=== PATIENT | male | born 1960 | race Caucasian/White ===

== ENCOUNTER 2019-01-18 08:34 | Inpatient (IN) | payer BC, OTHER, SELFPAY ==
--- NOTE | 2019-01-18 09:04 | RAD ---
Portable frontal chest radiograph: 01/18/2019 COMPARISON: 08/03/2010 HISTORY: Heat exhaustion, chest pain FINDINGS: Lungs are clear. Heart and mediastinal contours appear within normal limits. IMPRESSION: No acute findings.
[2019-01-18] MEDS ORDERED: Nitroglycerin 2% Ointment 1 INCH/1 GM Packet ONE (09:38)
[2019-01-18 09:50] LABS: #Lymphocytes 0.7 thou/uL (1.20-3.40); #Monocytes 0.6 thou/uL (0.11-0.59); #Neutrophils 6.1 thou/uL (1.40-6.50); %Basophils 0.6 % (0.0-1.0); %Eosinophils 0.3 % (0.0-10.0); %Monocytes 7.5 % (0.0-10.0); %Neutrophils 82.6 % (42.0-75.0); Hemoglobin 17.6 g/dL (14.0-18.0); Mean Corpuscular HGB CONC 33.4 g/dL (32.0-36.0); Mean Corpuscular Hemoglobin 33.4 pg (27.0-31.0); Mean Platelet Volume 8.1 fL (7.4-10.4); Platelet Count 238 thou/uL (130-400); RBC Distribution Width 14.2 % (11.5-14.5); Red Blood Cell (RBC) Count 5.26 mill/uL (4.70-6.10); White Blood Cell (WBC) Count 7.3 thou/uL (4.8-10.8)
[2019-01-18 10:11] LABS: ALT (SGPT) 37 U/L (8-55); AST (SGOT) 59 U/L (5-34); Albumin 4.4 g/dL (3.5-5.0); Alkaline Phosphatase 85 U/L (40-150); Anion Gap 31 mmol/L (10-20); BUN (Urea Nitrogen) 56 mg/dL (8.4-25.7); Bilirubin, Total 0.8 mg/dL (0.2-1.2); CK (CPK) 2639 U/L (30-200); Calc. Creatinine Clearance 0 mL/min (70-130); Calcium 8.7 mg/dL (7.8-10.44); Carbon Dioxide 17 mmol/L (22-29); Chloride 89 mmol/L (98-107); Estimated GFR-MDRD 6; Globulin 3.1 g/dL (2.4-3.5); Glucose 156 mg/dL (70-105); Lipase 30 U/L (8-78); Potassium 4.4 mmol/L (3.5-5.1); Protein, Total 7.5 g/dL (6.0-8.3); Sodium 133 mmol/L (136-145)
[2019-01-18 10:41] LABS: CKMB 24.4 ng/mL (0-6.6)
[2019-01-18] MEDS ORDERED: Metoprolol Tartrate 5 MG/5 ML VIAL ONE (10:42)
[2019-01-18] MEDS ORDERED: Nitroglycerin 50 MG/250 ML BOT 0 ML ONE (10:42)
--- NOTE | 2019-01-18 12:30 | ULT ---
ULTRASOUND RENAL BILATERAL STANDARD: Date: 01/18/19 HISTORY: Acute renal failure. COMPARISON: None. FINDINGS: Real-time Guerrero scale and color evaluation of the kidneys and urinary bladder performed. Diffuse incre ased hepatic echotexture. Right kidney measures 10.3 x 4.8 x 5.5 cm. Left kidney measures 11.2 x 5.1 x 6.3 cm. Urinary bladder is unremarkable and is mildly distended. IMPRESSION: 1. No evidence for acute obstructive uropathy. 2. Diffuse increased hepatic echotexture suggesting steatosis. POS: CET
[2019-01-18 12:52] LABS: Bilirubin Negative (Negative); Blood, Urine 3+ (Negative); Clarity Turbid (Clear); Glucose, Urine (Dipstick) 50 mg/dL (Negative); Leukocyte Negative Leu/uL (Negative); Nitrite Negative (Negative); Protein, Urine (Dipstick) 300 mg/dL (Neg-Trace); Urobilinogen Normal mg/dL (Less than 2)
[2019-01-18 13:01] LABS: Mucous/LPF 3+ LPF (<2+)
[2019-01-18 13:02] LABS: Bacteria/HPF None Seen HPF (None Seen); Transitional Epithelial 0-3 HPF (None Seen)
--- NOTE | 2019-01-18 13:15 | HP ---
The patient goes to the [place] [facility], although he admits he has not been there in about 3 years or more. CHIEF COMPLAINT: I was working outside and feeling queasy and dizzy. HISTORY OF PRESENT ILLNESS: Mr. Stallings is a pleasant 58-year-old gentleman, who has a history of hypertension, however, he is not on any medications for it. He says that yesterday he was working outside in the heat and noticed that he started feeling a bit queasy and dizzy. He also said he was starting to lose his balance. He says that the dizziness is worse when he tries to get up and move around and he says he basically fell and believes he maybe even passed out for a few minutes. He says he drank a lot a water and rested and noticed that he still was having some of these symptoms. He noticed that he also was feeling a bit short of breath and he had to stop every 10 minutes in order to try to catch his breath and rest. He says that the next morning he got up and started feeling the same way. At this time, he says his entire body was cramping and he said he felt dehydrated. He says that if he tried to stretch his legs, his calves would get sore. His arms and even his fingertips were cramping. Then, he says when he started getting short of breath, he says he could hardly breathe and his breathing felt hard and heavy. He also says that he was still trying to drink water and felt dehydrated, but every time he tried to drink, at this time, it was throwing up. He also admits that he has not urinated in the past 3 days. Neither as he had any bowel movement either, and due to these symptoms, he came to the ER for evaluation. In the ER, lab work was done and it was found that he has a creatinine of 8.6 with no previous baseline. He is also found to be acidotic and his troponin was slightly elevated and for this reason, he is being admitted. The patient denies any abdominal pain. He denies any fevers or chills. He denies any headaches. When asked if he has any chest pain, he says no. He says it is mainly just cramping and more muscle cramping, but he does note some shortness of breath off and on. REVIEW OF SYSTEMS: With regard to the review of systems; CONSTITUTIONAL: There has been no fevers. No chills. No night sweats. No weight loss. HEENT: He denies any headaches, but he does admit to some dizziness. No visual changes. No sore throat or rhinorrhea. NECK: No neck pain. No adenopathy. PULMONARY: No hemoptysis. No cough. No wheezing. CARDIOVASCULAR: He denies any chest pain. He has had some dyspnea both at rest and on exertion. No PND. No orthopnea. No lower extremity edema. GASTROINTESTINAL: As the history of present illness. He also had no hemoptysis or melena. GENITOURINARY: He has had no urine production in the last 3 days. No hematuria prior to that. MUSCULOSKELETAL: As the history of present illness. He does have some complaints of muscle cramping in both his upper and lower extremities. No muscle weakness. PSYCHIATRIC: No symptoms of anxiety or depression. SKIN AND INTEGUMENT: No skin changes. No rash. PAST MEDICAL HISTORY: Significant for hypertension, but he is currently not on any medications. He took himself off. PAST SURGICAL HISTORY: Negative. ALLERGIES: NO KNOWN DRUG ALLERGIES. CURRENT MEDICATIONS: None. SOCIAL HISTORY: He smokes about 2 packs over a weekend. He also uses smokeless tobacco and he has been a smoker for at least 30 years. He admits to being a heavy drinker, but he says he quit 2 months ago. He says he can drink up to a liter of liquor in a day when he drinks heavily with his friends, but other than that he does not really quantitate how much he drinks. He denies any drug use. He is retired from the [employer]. He is . He has 3 children, a son 38, a daughter 36, and an 11-year-old son and he also has some grand children. He would like to be a full code. PHYSICAL EXAMINATION: GENERAL: He is alert and oriented. He appears to be in no acute distress. He is well developed and well nourished. VITAL SIGNS: Blood pressure initially was 173/123, heart rate 90, respiratory rate of 20, and temperature is 97.9. HEENT: His pupils are equal, round, and reactive to light. Extraocular muscles are intact. His sclerae are anicteric. Throat, he is edentulous and he did have some white exudate on his tongue that appears to be thrush. NECK: There is no adenopathy. No bruits. No thyromegaly. LUNGS: Clear to auscultation. There is no wheezing. No rales. No rhonchi. CARDIOVASCULAR: He has a normal S1 and S2. I did not appreciate an S3 or S4. No murmurs, clicks, or rubs. ABDOMEN: Soft, nontender, and nondistended. Positive for bowel sounds. There is no rebound. No guarding. No organomegaly. EXTREMITIES: There is no clubbing or cyanosis. No edema. No calf tenderness. No joint effusions. NEUROLOGIC: Cranial nerves II through XII are grossly intact. His muscle strength is 5/5 in both his upper and lower extremities. SKIN AND INTEGUMENT: No skin changes. No rash. He has palpable posterior tibial pulses, but not dorsalis pedis pulses, but there are no skin lesions. Capillary refill is intact. LABORATORY RESULTS: Sodium is 133, potassium 4.4, chloride is 89, CO2 of 17, BUN of 56, creatinine 8.68, and glucose is 156. CK was elevated at 2639. Troponin was slightly elevated at 0.3. White blood cell count 7.3, hemoglobin 17.6, hematocrit is 52.6, and platelet count is 238. He had an EKG, which by my reading was sinus rhythm, the rate was 105. He had some T-wave inversions in I and aVL as well as a Q-wave in II and aVF. He had poor R-wave progression in V1 to V3 showing a possible old inferior infarct. He had left axis deviation and possible lateral ischemia. On his chest x-ray also by my reading, heart size was normal and there was no evidence of any interstitial infiltrates or effusions. ASSESSMENT AND PLAN: This is a 58-year-old gentleman, who presents to the emergency room with cramping and feeling dizzy and lightheaded and no urine output in about 3 days. He was found to be in renal failure. This is likely acute renal failure. It is unclear what his baseline creatinine is however, and he was also found to have elevated troponins as well. 1. For the acute renal failure, I suspect this is likely due to prerenal azotemia. He has already been started on IV fluid resuscitation. We will continue to trend his creatinine. We will also need to get a renal ultrasound just to make sure he does not have any obstructive uropathy and Nephrology has already been consulted. He also has some acid doses likely due to renal disease in which he will be placed on a bicarbonate drip. 2. Elevated troponin. He does have some EKG changes, however, these appear to be old. However, we will go ahead and get an echocardiogram on him. Continue to trend his cardiac enzymes. Place him on aspirin, nitrates, and beta-claudia. We will hold off on any heparin at this time. Pending Cardiology evaluation and as above, we will consult Cardiology. 3. Hypertensive urgency. We will start medications for blood pressure. However, we will need to avoid XI inhibitors given his renal insufficiency and place him on p.r.n. medicines and further recommendations will follow. Job ID: [id number]
[2019-01-18] MEDS ORDERED: Acetaminophen 325 MG TAB PO PRN ×2 (14:38→14:57)
[2019-01-18] MEDS ORDERED: Ondansetron ODT 4 MG TAB SL PRN (14:38)
[2019-01-18] MEDS ORDERED: Ondansetron PF 4 MG/2 ML Vial IVP PRN (14:38)
[2019-01-18] MEDS ORDERED: hydrALAZINE 20 MG/ML VIAL SLOW IVP PRN (14:57)
[2019-01-18] MEDS ORDERED: Nitroglycerin 0.4 MG TAB (25 Tab Bottle) SL PRN (14:57)
[2019-01-18] MEDS ORDERED: Nitroglycerin 2% Ointment 1 INCH/1 GM Packet TOP SCH (15:00)
[2019-01-18] MEDS ORDERED: Heparin 5,000 UNITS/ML VIAL SC SCH (15:00)
[2019-01-18] MEDS: Sodium Bicarbonate 150 MEQ in Dextrose 5% in Water 1,000 ML IV SCH ×2 (15:31→20:13)
[2019-01-18 15:48] LABS: CKMB 30.7 ng/mL (0-6.6)
[2019-01-18] MEDS: Nitroglycerin 2% Ointment 1 INCH/1 GM Packet TOP SCH (20:14)
[2019-01-18] MEDS: Heparin 5,000 UNITS/ML VIAL SC SCH (20:14)
[2019-01-18] MEDS: Metoprolol Tartrate 25 MG TAB PO SCH (20:15)
[2019-01-18] MEDS: Sodium Chloride 0.9% 1,000 ML IV SCH (20:28)
--- NOTE | 2019-01-18 20:48 | CON ---
DATE OF CONSULTATION: 01/18/2019 CONSULTING PHYSICIANS: Dr. Jones from ER and Dr. Crane. REASON FOR CONSULT: Acute kidney injury. REASON FOR ADMISSION: Dizziness and weakness. HISTORY OF PRESENT ILLNESS: This is a 58-year-old male with history of hypertension, came to the hospital with above complaints. He has been working outside, was not feeling well for the last few days and he was feeling very weak and tired and was taken to the hospital, was found to have acute kidney injury, had ultrasound, which was unremarkable and Nephrology consulted. PAST MEDICAL HISTORY: Positive for hypertension. PAST SURGICAL HISTORY: None. HOME MEDICATIONS: None. For now, he is not taking any medicines for hypertension. ALLERGIES: NO KNOWN DRUG ALLERGIES. SOCIAL HISTORY: Smokes to about 1-2 packs per day and also drinks alcohol. FAMILY HISTORY: No history of kidney disease. REVIEW OF SYSTEMS: CONSTITUTIONAL: Negative for weight loss or gain, ability to conduct usual activities. SKIN: Negative for rash, itching. EYES: Negative for double vision, pain. ENT/MOUTH: Negative for nose bleeding, neck stiffness, pain, tenderness. CARDIOVASCULAR: Negative for palpitations, dyspnea on exertion, orthopnea. RESPIRATORY: Negative for shortness of breath, wheezing, cough, hemoptysis, fever or night sweats. GASTROINTESTINAL: Negative for poor appetite, abdominal pain, heartburn, nausea, vomiting, constipation, or diarrhea. GENITOURINARY: Negative for urgency, frequency, dysuria, nocturia. MUSCULOSKELETAL: Negative for pain, swelling. NEUROLOGIC/PSYCHIATRIC: Negative for anxiety, depression. ALLERGY/IMMUNOLOGIC: Negative for skin rash, bleeding tendency. Rest are negative. PHYSICAL EXAMINATION: GENERAL: Well-built male, in no apparent distress. VITAL SIGNS: Temperature 98.2, pulse 79, respiratory rate of 18, pressure . HEENT: Atraumatic, normocephalic. Oral mucosa moist. NECK: Supple. CV: S1 and S2 heard. Regular rate and rhythm. RESPIRATORY: Clear. GI: Abdomen is soft. MUSCULOSKELETAL: DERMATOLOGIC: No rash. NEUROLOGIC: Alert and awake. PSYCHIATRIC: Normal mood and affect. LABORATORY DATA: Potassium 4.4, BUN is 56, and creatinine is 8.6. ASSESSMENT AND PLAN: 1. Acute kidney injury, most likely from volume depletion. Continue hydration. Renal ultrasound unremarkable. 2. Hyponatremia. 3. Metabolic acidosis. 4. Elevated CK level. 5. Hemoconcentration. Continue IV fluids. Avoid nephrotoxins and monitor labs. We will follow. Thank you for the consult. Job ID: [id number]
[2019-01-18 20:57] LABS: Troponin I 0.211 ng/mL (< 0.028)
--- NOTE | 2019-01-19 01:07 | CON ---
DATE OF CONSULTATION: 01/18/2019 HISTORY OF PRESENT ILLNESS: Kwesi Stallings is a 58-year-old white male, admitted with severe dehydration and muscle cramps. Yesterday, he was working outside in the heat, cleaning out a storage building and started to feel somewhat lightheaded, dizzy. He also states that he lost his balance and fell and hit his chest on a chair. He does remember falling. He drank a lot of water and still felt very weak. Last night, he had repetitive muscle cramps. He also started to notice that he was getting short of breath. He tried to drink water. However, every time he would, he would vomit the water up. He then came to the emergency room for further evaluation. He denies any chest discomfort. PAST MEDICAL HISTORY: Hypertension, although he has not been on any medication for several years. No history of diabetes or hypercholesterolemia. MEDICATIONS: None. ALLERGIES: NONE. OPERATIONS: None. SOCIAL HISTORY: Smokes two packs over weekend. Also used smokeless tobacco. He was a heavy drinker, but stopped 2 to 3 months ago. He would drink up to a liter of liquor per day. REVIEW OF SYSTEMS: Unremarkable except as noted above. PHYSICAL EXAMINATION: VITAL SIGNS: Blood pressure 154/92, pulse of 82. HEENT: PERRL. NECK: Supple. CHEST: Clear. CARDIAC: S1 and S2 normal without any S3, S4, or murmurs. Carotid upstrokes normal without bruits. ABDOMEN: Normal bowel sounds without tenderness. EXTREMITIES: Revealed no clubbing, cyanosis, or edema. NEUROLOGICAL: Grossly intact. SKIN: Warm and dry. LABORATORY DATA: EKG revealed sinus tachycardia with left axis deviation, inferior and anterior myocardial infarction with lateral T-wave changes. Hemoglobin 17.6 , hematocrit 52.6, white count 7300, platelets 238,000. Sodium 133, potassium 4.4 , chloride 89, carbon dioxide 17, BUN 56, creatinine 8.68, glucose 156, AST 59, ALT 37, CK 2639, CK-MB 30.7, troponin I 0.345. IMPRESSION: 1. Acute kidney injury, probably due to severe dehydration. 2. Heat exhaustion. 3. Non-ST elevation myocardial infarction, type 2. Given his total CK, the elevated CK-MB is not significant for myocardial infarction. His elevated troponin I is probably due to demand ischemia, as well as his acute renal failure. 4. Rhabdomyolysis. 5. Hypertension untreated. 6. Smoker. 7. History of ETOH abuse. RECOMMENDATIONS: Certainly, I do not feel any acute intervention is warranted at this time with his acute kidney injury. He will be hydrated. An echocardiogram will be performed. He does have an abnormal EKG and depending upon his renal function, Cardiolite scan probably will need to be performed. Job ID: [id number] MTDD
[2019-01-19] MEDS: Sodium Chloride 0.9% 1,000 ML IV SCH ×3 (04:43→21:00)
[2019-01-19 05:49] LABS: #Lymphocytes 1.8 thou/uL (1.20-3.40); %Basophils 0.1 % (0.0-1.0); %Eosinophils 0.4 % (0.0-10.0); %Lymphocytes 20.5 % (21.0-51.0); %Monocytes 11.2 % (0.0-10.0); %Neutrophils 67.8 % (42.0-75.0); Hemoglobin 15.5 g/dL (14.0-18.0); Mean Corpuscular HGB CONC 34.9 g/dL (32.0-36.0); Mean Corpuscular Hemoglobin 34.6 pg (27.0-31.0); Mean Corpuscular Volume 99.3 fL (78.0-98.0); Mean Platelet Volume 7.8 fL (7.4-10.4); Platelet Count 195 thou/uL (130-400); RBC Distribution Width 13.7 % (11.5-14.5); Red Blood Cell (RBC) Count 4.47 mill/uL (4.70-6.10); White Blood Cell (WBC) Count 8.8 thou/uL (4.8-10.8)
[2019-01-19 06:00] LABS: Anion Gap 16 mmol/L (10-20); BUN (Urea Nitrogen) 72 mg/dL (8.4-25.7); CK (CPK) 3638 U/L (30-200); Calc. Creatinine Clearance 15 mL/min (70-130); Calcium 8.1 mg/dL (7.8-10.44); Carbon Dioxide 27 mmol/L (22-29); Cardiac Risk 5.6 (Less than 4.5); Chloride 88 mmol/L (98-107); Cholesterol 257 mg/dl (< 200 Desired); Estimated GFR-MDRD 11; Glucose 111 mg/dL (70-105); HDL Cholesterol 46 mg/dL (>60 Neg Risk); LDL Cholesterol, Calculated 164 mg/dL; Potassium 3.2 mmol/L (3.5-5.1); Sodium 128 mmol/L (136-145); Triglycerides 237 mg/dL (Less than 150)
[2019-01-19 06:13] LABS: CKMB 23.4 ng/mL (0-6.6); Critical Call CKMB RESULT DECREASING
[2019-01-19] MEDS: Nitroglycerin 2% Ointment 1 INCH/1 GM Packet TOP SCH (06:22)
--- NOTE | 2019-01-19 07:30 | PDOC.HOSPP ---
- Subjective Encounter Date: 01/19/19 Encounter Time: 07:15 Subjective: Mr. Stallings was seen this morning in follow up for heat exhaustion and dehydration. He is awake and alert this morning and says that the cramps he was having before have greatly improved. He only feels his fingers in his right hand cramp infrequently now. He still complains of muscle soreness and weakness all over his body. He is exhausted and was unable to sleep last night because of his blood pressure cuff activating every hour. He has been eating solid food and tolerating it well without nausea or vomiting. He had 2 solid, non diarrheal bowel movements since his admission yesterday. His 12 hour urine output was 1400 ml via conti catheter. He has no other complaints at this time. - Objective Vital Signs & Weight: Vital Signs (12 hours) Temp Pulse Ox 01/19/19 04:00 97.3 F L 01/19/19 02:41 97 01/19/19 00:13 98.8 F 01/18/19 20:00 98.7 F 95 Weight Weight 71.169 kg Most Recent Monitor Data Heart Rate from ECG 53 NIBP 124/76 NIBP BP-Mean 92 Respiration from ECG 22 SpO2 93 I&O: 01/18/19 01/19/19 01/20/19 06:59 06:59 06:59 Intake Total 2248 Output Total 1725 Balance 523 Result Diagrams: 01/19/19 05:23 01/19/19 05:23 Hospitalist ROS - Review of Systems ENT: reports: other (positive for dry mouth.). denies: throat pain Respiratory: denies: cough Gastrointestinal: denies: nausea, vomitting, diarrhea, constipation Skin: reports: lesions (scratch at the lower right sternal border d/t recent fall) Neurological: reports: weakness - Medication Medications: Active Medications Generic Name Dose Route Start Last Admin Trade Name Freq PRN Reason Stop Dose Admin Heparin Sodium (Porcine) 5,000 units 01/18/19 21:00 01/18/19 20:14 Heparin SC 5,000 units BID ARIANNA Administration Sodium Chloride 1,000 mls @ 125 mls/hr 01/18/19 23:59 01/19/19 04:43 Normal Saline 0.9% IV 1,000 mls .Q8H ARIANNA Administration Metoprolol Tartrate 12.5 mg 01/18/19 21:00 01/18/19 20:15 Lopressor PO 12.5 mg BID ARIANNA Administration Nitroglycerin 0.5 inch 01/18/19 22:00 01/19/19 06:22 Nitro-Bid 2% Ointment TOP 0.5 inch Q8HR ARIANNA Administration - Exam General Appearance: NAD, awake alert Eye: PERRL, anicteric sclera ENT: moist mucosa Neck: supple, symmetric, no lymphadenopathy Heart: RRR, no murmur, no rubs Respiratory: CTAB, wheezes (mild wheezing heard on right upper lobe.) Gastrointestinal: soft, non-distended, normal bowel sounds, tender to palpation (mildly tender to palpation.) Extremities: no cyanosis, no clubbing Skin - other findings: Erythematous scratch-like lesion lower right sternal border Neurological: no focal deficits Neurological - other findings: 5/5 motor strengths in both upper and lower extremities. Musculoskeletal: normal tone, normal strength Hosp A/P (1) ROSELIA (acute kidney injury) Code(s): N17.9 - ACUTE KIDNEY FAILURE, UNSPECIFIED Status: Acute (2) Heat exhaustion Code(s): T67.5XXA - HEAT EXHAUSTION, UNSPECIFIED, INITIAL ENCOUNTER Status: Acute (3) HTN (hypertension) Code(s): I10 - ESSENTIAL (PRIMARY) HYPERTENSION Status: Chronic - Plan Mr. Stallings is a 58 y/o male with acute kidney injury (ROSELIA) secondary to a recent episode of heat exhaustion and dehydration. * ROSELIA - He underwent fluid replacement in the ER and has been tolerating P.O. after admission. He has adequate urine output and his labs are trending towards normal limits as he recovers from dehydration. Creatinine has fallen to 5.5. from over 8 yesterday. He is still currently hyponatremic, hypochloremic and mildly hypokalemic, but plan is to monitor for improvement of electrolytes as hydration status continues to improve. Cardiac enzymes were elevated upon admission, likely from his ROSELIA given his increased creatinine. His CKMB is down to 23.4 (form 30.7) and troponin is 0.211 (from 0.315). Will continue IV fluids for 1 more day given his extensive dehydration status and will reevaluate labs tomorrow and consider taking him off IV fluids given that he is tolerating P.O. and diuresing well. * HTN - He has a diagnosis of HTN for which he stopped taking medicine. He had complaints of chest 'cramping' in the ER and was given nitroglycerin. His blood pressures have been WNL during his admission and plan is to continue nitro for today and consider weaning him off tomorrow to avoid tachyphylaxis and order hyralazine prn for systolic BP > 170. Mr. Stallings was seen today by me in follow-up of Acute kidney injury. The patient was also discussed with Mike Allen, and agree with above. He is feeling better, and the body cramps have improved. He is keeping food down. His physical exam is benign. Agree with continue IV hydration. Bp is improved, and will discontinue Nitrate tomorrow. Still awaiting Echo results.
[2019-01-19] MEDS: Aspirin 325 MG TAB PO SCH (09:15)
[2019-01-19] MEDS: Metoprolol Tartrate 25 MG TAB PO SCH (09:16)
[2019-01-19] MEDS: Famotidine 20 MG TAB PO SCH (09:16)
[2019-01-19] MEDS: Heparin 5,000 UNITS/ML VIAL SC SCH (09:17)
--- NOTE | 2019-01-19 09:36 | PRG ---
DATE OF SERVICE: 01/19/2019 SUBJECTIVE: A 58-year-old gentleman being seen for acute kidney injury. The patient denies nausea, vomiting, or chest pain. OBJECTIVE: CONSTITUTIONAL: The patient is awake and alert. GENERAL APPEARANCE AND MENTAL STATUS: Fair. VITAL SIGNS: Pulse 75, breathing 16, blood pressure was 124/76. HEAD/NECK: Normocephalic. Atraumatic. EYES: EOMI. No deformity. EARS: Clear. No ulcers. NOSE: Intact. No lesions. MOUTH: Clear. No discharge. THROAT: Clear. No exudate. LUNGS: Clear. No crackles. CARDIAC: S1, S2. No rub. ABDOMEN: Benign. Bowel sounds positive. GENITALIA/RECTUM: Thayer absent. BACK/EXTREMITIES: Edema 0+. NEUROLOGICAL: Alert and motor intact. SKIN: LYMPHATICS: ASSESSMENT: Acute kidney injury, improved. Hypertension, stable. Anemia, stable. Medication based on GFR appropriate. Job ID: [id number]
--- NOTE | 2019-01-20 08:55 | PDOC.HOSPP ---
- Subjective Encounter Date: 01/20/19 Encounter Time: 08:20 Subjective: Ms. Stallings was seen today in follow up for ROSELIA secondary to dehydration. He reporting feeling better this morning. His appetite has returned to normal and he denies any nausea or vomiting. He still has soreness over his entire body, but his cramps have gone away. He plans to attempt ambulation today to evaluate his weakness. His has been urination without issues, has not had another BM since yesterday, but has had increased amount of flatus. He no longer has dry mouth complaints. No other complaints at this time. - Objective Vital Signs & Weight: Vital Signs (12 hours) Temp Pulse Ox 01/20/19 08:00 97 01/20/19 07:27 96.9 F L 01/20/19 03:36 97.9 F 01/20/19 00:00 97.6 F Weight Admit Weight 70.76 kg Weight 77.383 kg Most Recent Monitor Data Heart Rate from ECG 49 NIBP 184/101 NIBP BP-Mean 128 Respiration from ECG 16 SpO2 95 I&O: 01/19/19 01/20/19 01/21/19 06:59 06:59 06:59 Intake Total 2248 4185 Output Total 1725 4675 Balance 523 -490 Result Diagrams: 01/19/19 05:23 01/20/19 09:08 Hospitalist ROS - Review of Systems Constitutional: reports: weakness. denies: fever, chills, sweats Respiratory: denies: cough, shortness of breath, wheezing Cardiovascular: denies: chest pain, edema, light headedness Gastrointestinal: denies: nausea, vomitting, abdominal pain Genitourinary: denies: dysuria Neurological: reports: weakness. denies: confusion, seizures - Medication Medications: Active Medications Generic Name Dose Route Start Last Admin Trade Name Freq PRN Reason Stop Dose Admin Aspirin 325 mg 01/19/19 09:00 01/19/19 09:15 Aspirin PO 325 mg DAILY ARIANNA Administration Famotidine 20 mg 01/19/19 09:00 01/19/19 09:16 Pepcid PO 20 mg DAILY ARIANNA Administration Sodium Chloride 1,000 mls @ 125 mls/hr 01/18/19 23:59 01/19/19 21:00 Normal Saline 0.9% IV 1,000 mls .Q8H ARIANNA Administration - Exam General Appearance: NAD, awake alert Eye: PERRL ENT: moist mucosa Neck: supple, no lymphadenopathy Heart: RRR, no murmur, no gallops, no rubs Respiratory: CTAB, no wheezes, no ronchi Gastrointestinal: soft, non-tender, non-distended, normal bowel sounds, no hepatomegaly, no splenomegaly Extremities: no cyanosis, no clubbing Neurological: no focal deficits Musculoskeletal: normal tone Hosp A/P (1) ROSELIA (acute kidney injury) Code(s): N17.9 - ACUTE KIDNEY FAILURE, UNSPECIFIED Status: Acute (2) Heat exhaustion Code(s): T67.5XXA - HEAT EXHAUSTION, UNSPECIFIED, INITIAL ENCOUNTER Status: Acute (3) HTN (hypertension) Code(s): I10 - ESSENTIAL (PRIMARY) HYPERTENSION Status: Chronic - Plan Mr. Stallings is a 58 y/o male with acute kidney injury (ROSELIA) secondary to a recent episode of heat exhaustion and dehydration. * ROSELIA - No new labs drawn this morning. His fluid replacement should be continued and re-evaluated once labs are drawn. He continues to tolerating fluids P.O. well and is diuresing appropriately without trouble. * HTN - He has a diagnosis of HTN for which he stopped taking medicine. His pressure over night was 184/101, but 153/85 when rechecked this AM. Nitroglycerin has been changed to PRN for chest pain only. He has hydralazine ordered prn for systolic pressures above 180. * Continue asprin and famotidine for prophylaxis. Patient encouraged to attempt ambulation today with help of PT. Mr. Stallings was seen and examined by me. I have also discussed him with [facility] -3 Mike Allen. He is feeling better today. He does not have any new complaints. His exam is benign. Acute renal failure is resolving. Echo results noted. His blood pressure has been elevated, and will therefore start Procardia. I anticipate he may be ready for discharge tomorrow.
[2019-01-20] MEDS: Aspirin 325 MG TAB PO SCH (09:51)
[2019-01-20] MEDS: Famotidine 20 MG TAB PO SCH (09:51)
[2019-01-20] MEDS ORDERED: NIFEdipine XL 60 MG TAB PO SCH (10:00)
[2019-01-20 10:10] LABS: Anion Gap 14 mmol/L (10-20); BUN (Urea Nitrogen) 41 mg/dL (8.4-25.7); Calc. Creatinine Clearance 50 mL/min (70-130); Calcium 8.8 mg/dL (7.8-10.44); Carbon Dioxide 27 mmol/L (22-29); Chloride 100 mmol/L (98-107); Estimated GFR-MDRD 40; Glucose 132 mg/dL (70-105); Potassium 3.6 mmol/L (3.5-5.1); Sodium 137 mmol/L (136-145)
[2019-01-20] MEDS: Sodium Chloride 0.9% 1,000 ML IV SCH ×2 (13:06→21:09)
--- NOTE | 2019-01-20 13:09 | PRG ---
DATE OF SERVICE: 01/20/2019 SUBJECTIVE: A 58-year-old gentleman, being seen for acute kidney injury. The patient denied nausea, vomiting, or chest pain. OBJECTIVE: See above. Awake, alert, in no acute distress. VITAL SIGNS: Afebrile, pulse 79, breathing 16, blood pressure 139/87. GENERAL APPEARANCE AND MENTAL STATUS: Fair. HEAD/NECK: Normocephalic. Atraumatic. EYES: EOMI. No deformity. EARS: Clear. No ulcers. NOSE: Intact. No lesions. MOUTH: Clear. No discharge. THROAT: Clear. No exudate. LUNGS: Clear. No crackles. CARDIAC: S1, S2. No rub. ABDOMEN: Benign. Bowel sounds positive. GENITALIA/RECTUM: Thayer absent. BACK/EXTREMITIES: Edema 0+. NEUROLOGICAL: Alert and motor intact. SKIN: LYMPHATICS: LABORATORY DATA: Reviewed. ASSESSMENT AND PLAN: 1. Chronic kidney disease, stage 3, stable. 2. Acute kidney injury due to acute tubular necrosis, improved. 3. Hypertension, stable. 4. Anemia, stable. 5. resolved. No indication for dialysis. Job ID: [id number]
[2019-01-21 04:27] LABS: Anion Gap 12 mmol/L (10-20); BUN (Urea Nitrogen) 24 mg/dL (8.4-25.7); CK (CPK) 906 U/L (30-200); Calc. Creatinine Clearance 72 mL/min (70-130); Calcium 9.4 mg/dL (7.8-10.44); Carbon Dioxide 25 mmol/L (22-29); Chloride 103 mmol/L (98-107); Estimated GFR-MDRD 61; Glucose 100 mg/dL (70-105); Sodium 136 mmol/L (136-145)
[2019-01-21 04:32] LABS: CKMB 6.4 ng/mL (0-6.6)
[2019-01-21] MEDS: Sodium Chloride 0.9% 1,000 ML IV SCH (05:17)
[2019-01-21 06:28] VITALS: BMI 23.2
--- NOTE | 2019-01-21 08:11 | PDOC.HOSPP ---
- Subjective Encounter Date: 01/21/19 Encounter Time: 07:40 Subjective: Mr. Stallings was seen in follow up today for recent ROSELIA from dehydration and heat exhaustion. Today he reports that he is feeling even better. No cramps today, but he is still feeling a little weak and sore. His appetite is still adequate and he is tolerating fluids well. He no longer has dry mouth. He ambulated yesterday and had another solid, non-diarrheal bowel movement yesterday. He did notice that he still had some orthostatic dizziness upon standing yesterday. - Objective Vital Signs & Weight: Vital Signs (12 hours) Temp Pulse Ox 01/21/19 08:05 98 01/21/19 07:33 97.7 F 01/21/19 04:00 98.1 F 01/20/19 23:43 98.5 F Weight Admit Weight 70.76 kg Weight 73.539 kg Most Recent Monitor Data Heart Rate from ECG 46 NIBP 162/89 NIBP BP-Mean 113 Respiration from ECG 10 SpO2 97 I&O: 01/20/19 01/21/19 01/22/19 06:59 06:59 06:59 Intake Total 4185 5326 Output Total 4675 7250 Balance -490 -2554 Result Diagrams: 01/19/19 05:23 01/21/19 03:53 Hospitalist ROS - Review of Systems Constitutional: denies: fever, chills Respiratory: denies: cough, shortness of breath Cardiovascular: denies: chest pain Gastrointestinal: denies: nausea, vomiting, abdominal pain, diarrhea, constipation Genitourinary: denies: dysuria Neurological: reports: weakness - Medication Medications: Active Medications Generic Name Dose Route Start Last Admin Trade Name Eliasq PRN Reason Stop Dose Admin Aspirin 325 mg 01/19/19 09:00 01/20/19 09:51 Aspirin PO 325 mg DAILY ARIANNA Administration Famotidine 20 mg 01/19/19 09:00 01/20/19 09:51 Pepcid PO 20 mg DAILY ARIANNA Administration Sodium Chloride 1,000 mls @ 125 mls/hr 01/18/19 23:59 01/21/19 05:17 Normal Saline 0.9% IV 1,000 mls .Q8H ARIANNA Administration - Exam General Appearance: NAD, awake alert Eye: PERRL, anicteric sclera ENT: moist mucosa Neck: supple, no lymphadenopathy Heart: RRR, no murmur, no rubs Respiratory: CTAB, no wheezes, no rales, no ronchi Gastrointestinal: soft, non-tender, no hepatomegaly, no splenomegaly, no guarding, no rigidity Extremities: no cyanosis, no clubbing, no edema Skin: normal turgor, no lesions Hosp A/P (1) ROSELIA (acute kidney injury) Code(s): N17.9 - ACUTE KIDNEY FAILURE, UNSPECIFIED Status: Acute (2) Heat exhaustion Code(s): T67.5XXA - HEAT EXHAUSTION, UNSPECIFIED, INITIAL ENCOUNTER Status: Acute (3) HTN (hypertension) Code(s): I10 - ESSENTIAL (PRIMARY) HYPERTENSION Status: Chronic - Plan Mr. Stallings is a 58 y/o male with acute kidney injury (ROSELIA) secondary to a recent episode of heat exhaustion and dehydration. * ROSELIA - BMP drawn this morning revealed normal levels of all electrolytes and his BUN & Cr have also returned to within normal limits. His IV fluid replacement can be stopped now. He continues to tolerate P.O. well and is diuresing well . * HTN - His blood pressure was 162/89 this morning. He is currently on nifedipine. Recommended outpatient follow up for HTN with PCP. * Patient was able to ambulate yesterday and he just has some weakness and soreness left to recover from. Recommend discharge today. Will discuss with Dr. Crane. Patient was seen and examined by me. He does not have any complaints. Exam - lungs are clear, no wheezing or rales. No edema. His creatinine is at baseline. He is clinically stable for discharge he will need to go home on Nifedipine for blood pressure and early follow-up at the [facility].
[2019-01-21] MEDS ORDERED: NIFEdipine XL 60 MG TAB PO SCH (09:00)
[2019-01-21] MEDS: Aspirin 325 MG TAB PO SCH (10:09)
[2019-01-21] MEDS: Famotidine 20 MG TAB PO SCH (10:11)
[2019-01-21 10:17] VITALS: BP 171/104
[2019-01-21 11:20] VITALS: TEMP 97.1
--- NOTE | 2019-01-21 13:15 | PRG ---
DATE OF SERVICE: 01/21/2019 SUBJECTIVE: A 58-year-old gentleman, being seen for acute kidney injury. The patient denied any nausea, vomiting, or chest pain. OBJECTIVE: See above. Awake, alert, in no acute distress. VITAL SIGNS: Afebrile, pulse 48, breathing 16, blood pressure 190/104. GENERAL APPEARANCE AND MENTAL STATUS: Fair. HEAD/NECK: Normocephalic. Atraumatic. EYES: EOMI. No deformity. EARS: Clear. No ulcers. NOSE: Intact. No lesions. MOUTH: Clear. No discharge. THROAT: Clear. No exudate. LUNGS: Clear. No crackles. CARDIAC: S1, S2. No rub. ABDOMEN: Benign. Bowel sounds positive. GENITALIA/RECTUM: Thayer absent. BACK/EXTREMITIES: Edema 0+. NEUROLOGICAL: Alert and motor intact. SKIN: LYMPHATICS: LABORATORY DATA: Reviewed. ASSESSMENT AND PLAN: 1. Acute kidney injury, improved. 2. Hypertension, stable. 3. Anemia, stable. Medication based on GFR appropriate. No indication for dialysis. Job ID: [id number]
--- NOTE | 2019-01-22 03:39 | DIS ---
DATE OF ADMISSION: 01/18/2019 DATE OF DISCHARGE: 01/21/2019 PRIMARY CARE PHYSICIAN: The patient currently does not have a primary care physician. DISCHARGE DISPOSITION: Home. PRIMARY DISCHARGE DIAGNOSES: 1. Acute kidney injury. 2. Hypertension. 3. Non-ST elevation myocardial infarction, type 2. 4. Rhabdomyolysis. DISCHARGE MEDICATIONS: Include nifedipine XL 60 mg p.o. daily. IMAGING DONE DURING THE HOSPITAL: Include renal ultrasound showing no evidence of acute obstructive uropathy. There was some diffuse hepatic echotexture suggesting steatosis. The patient also had an echocardiogram demonstrating an ejection fraction estimated at 55% to 60%. There was some mild mitral regurgitation present. CODE STATUS: Full code. ALLERGIES: NO KNOWN DRUG ALLERGIES. HOSPITAL COURSE: Mr. Stallings is a 58-year-old gentleman, who presented to the emergency room complaining of severe muscle cramping as well as nausea and dizzy. He was found to be in acute kidney injury with a creatinine on admission of 8.68. He was also found to be hyponatremic and had an elevated serum troponin. He was admitted and started on IV hydration for presumed prerenal azotemia. Nephrology was consulted. He had a renal ultrasound, which there was no evidence of any obstruction. The patient improved over the course of the next few days. An echocardiogram was done due to elevated troponin, which was negative and it was felt that the elevated troponin was likely the result of the acute kidney injury. He was stabilized and able to be discharged home in stable condition. He is to follow up at the [facility] in approximately 1 week. Job ID: [id number]
--- NOTE | 2019-01-23 15:20 | EKG ---
Test Reason : CP Blood Pressure : / mmHG Vent. Rate : 103 BPM Atrial Rate : 103 BPM P-R Int : 140 ms QRS Dur : 072 ms QT Int : 358 ms P-R-T Axes : 064 -33 129 degrees QTc Int : 468 ms Sinus tachycardia Possible Left atrial enlargement Left axis deviation Inferior infarct , age undetermined Abnormal ECG Confirmed by LEONARD STACK, AKHIL ([id number]), editor book BILLY ANTOINE ([id number]) on 01/23/2019 3:19:44 PM Referred By: Confirmed By:AKHIL VALLE MD
== END 2019-01-21 13:29 | disposition home or self-care (01) | DRG 682 ==
LOC: ERS 08:34 → IMCU/EMU 14:16
PROVIDERS: ADMIT Internal Medicine; ATTEND Internal Medicine
DX: N17.0 Acute kidney failure with tubular necrosis (principal); I21.A1 Myocardial infarction type 2; M62.82 Rhabdomyolysis; E87.1 Hypo-osmolality and hyponatremia; E87.2 Acidosis; E86.0 Dehydration; D64.9 Anemia, unspecified; E87.6 Hypokalemia; I12.9 Hypertensive chronic kidney disease with stage 1 through stage 4 chronic kidney disease, or unspecified chronic kidney disease; N18.3 Chronic kidney disease, stage 3 (moderate); D63.1 Anemia in chronic kidney disease; T67.5XXA Heat exhaustion, unspecified, initial encounter; I16.0 Hypertensive urgency; Z87.891 Personal history of nicotine dependence
CPT/HCPCS: 36415; 51702; 71045; 76770; 80048; 80053; 80061; 81003; 81015; 82550; 82553; 83690; 84484; 85025; 93005; 93306; 94760; 96361; 96365; 96366; J1644; J7070